=== PATIENT | male | born 1940 | race Caucasian/White ===

== ENCOUNTER → 2016-08-07 | Outpatient (CLI) | payer OTHER ==
--- NOTE | 2016-08-07 16:53 | XA ---
Exam Date: 08/07/16 Patient's Age: 76 HEIGHT: 68.0 in. WEIGHT: 250.0 lbs. INDICATIONS: Back pain, osteoporotic FRACTURES: TREATMENTS: Albuterol, calcium, gabapentin, insulin shot, Losartan, metoprolol, omeprazole, potassium, Sertraline, simvastatin. ASSESSMENT: The BMD measured at Femur Neck Mean is 0.7609 g/cm2 with a T-score of -2.4 is low. Fracture risk is high. A followup DXA test is recommended in one year to monitor response to therapy. The BMD measured at Femur Troch Mean is 0.671 g/cm2 with a T-score of -2.4 is low. Fracture risk is high. A followup DXA test is recommended in one year to monitor response to therapy. RESULTS: Site Region Age Classification T-Score BMD AP Spine L1-L4 75.5 N/A -0.4 1.184 g/cm2 Dual Femur Neck Mean 75.5 N/A -2.4 0.760 g/cm2 Dual Femur Troch Mean 75.5 N/A -2.4 0.671 g/cm2 Dual Femur Troch Mean 75.5 N/A -2.2 0.780 g/cm2 World Health Organization - Criteria for post-menopausal, women: Normal: T-Score at or above -1 SD Osteopenia: T-Score between -1 and -2.5 SD Osteoporosis: T-Score at or below -2.5 SD RECOMMENDATION: Pharmacologic treatment recommendations & Initiate pharmacologic treatment: - In those with hip or vertebral (clinical or asymptomatic) fractures - In those with T -scores <-2.5 at the femoral neck, total hip, or lumbar spine by DXA - In postmenopausal women and men age 50 and older with low bone mass (T-score between -1.0 and -2.5, osteopenia) at the femoral neck, total hip, or lumbar spine by DXA and a 10-year hip fracture probability >3 % or a 10-year major osteoporosis-related fracture probability >20% based on the [place]-adapted WHO absolute fracture risk model (Fracture Risk Algorithm (FRAX); www. NOF.org and www.shef.ac.uk/FRAX) FOLLOW UP: People with diagnosed cases of osteoporosis or at high risk for fracture should have regular bone mineral density tests. For patients eligible for Medicare, routine testing is allowed once every 2 years. The testing frequency can be increased to 1 year for patients who have rapidly progressing disease, those who are reviewing or discontinuing medial therapy to restore bone mass, or have additional risk factors. People with diagnosed cases of osteoporosis or osteopenia should be regularly tested for bone mineral density. For patient eligible for Medicare, routine testing is allowed once every 2 years. The testing frequency can be increased to 1 year for patients who have rapidly progressing disease, or for those who are receiving medial therapy to restore bone mass. [facility] -- DANIEL Wooten [phone] - FAX: [phone] [place]
== END ==
LOC: MW.DI 14:49
DX: M85.80 Other specified disorders of bone density and structure, unspecified site (principal)
CPT/HCPCS: 77080; 77080-26